=== PATIENT | male | born 1965 | race Caucasian/White ===

== ENCOUNTER 2017-09-24 19:04 | Emergency (ER) | payer OTHER ==
[2017-09-24] MEDS: TRIAMCINOLONE ACET 40 MG/ML INJ INJ (21:33)
== END 2017-09-24 22:36 | disposition home or self-care (01) ==
LOC: FTE 19:04
DX: M10.021 Idiopathic gout, right elbow (principal)
CPT/HCPCS: 99284-25; Z7610

== ENCOUNTER 2017-09-30 19:00 | Emergency (ER) | payer OTHER ==
[2017-09-30] MEDS: DEXAMETHASONE 10 MG/ML 1 ML INJ IM (21:33)
== END 2017-09-30 23:00 | disposition left against medical advice (07) ==
LOC: FTE 19:00
DX: M25.521 Pain in right elbow (principal)
CPT/HCPCS: 96372; 99284-25